=== PATIENT | female | born 1950 | race Caucasian/White ===

== ENCOUNTER 2017-01-03 22:26 | Emergency (ER) | payer OTHER, BC ==
[~2017-01-03] VITALS: Ht 167.6 cm; Wt 81.7 kg
[~2017-01-03 22:26] MED LIST: ACCUPRIL40 MG PO; Aspirin E.C. PO; Bentyl PO; CARDIZEM CD,CA180 MG PO; CARTIA XT180 MG PO; CIPRO250 MG PO; CLINDAMYCIN HC300 MG PO; Cardizem CD,Cartia X PO; FLAGYL500 MG PO; Glucophage PO; Glucophage XR,Fortam PO; Glucotrol PO; Hydrodiuril,Oretic,E PO; KlonoPIN PO; LANTUS 3 M100 UNITS/ SC; LANTUS100 UNIT/1 SQ; Livalo PO; METFORMIN HCL500 MG PO; MOTRIN800 MG PO; NAPROSYN500 MG PO; PAXIL10 MG PO; PERCOCET 5/31 TABLET PO; PRILOSEC20 MG PO; Protonix PO; QUINAPRIL HCL40 MG PO; REQUIP1 MG PO; REQUIP2 MG PO; TRAMADOL HCL1 GM MC; Ultracet PO; VYTORIN 10-201 EACH PO; VYTORIN 10/21 TABLET PO; ZOFRAN4 MG PO
[2017-01-03 22:29] VITALS: BP 190/81
[2017-01-03] MEDS ORDERED: VICODIN 5-3001 EACH PO (23:43)
== END 2017-01-03 23:57 | disposition home or self-care (01) ==
LOC: EME 22:26
DX: M79.671 Pain in right foot (principal); R00.2 Palpitations; M72.2 Plantar fascial fibromatosis; I10 Essential (primary) hypertension; E11.9 Type 2 diabetes mellitus without complications; Z79.4 Long term (current) use of insulin; Z79.82 Long term (current) use of aspirin
CPT/HCPCS: 99281; 99283